=== PATIENT | male | born 1975 | race Asian ===

== ENCOUNTER 2017-03-07 09:52 | Outpatient (CLI) | payer BC ==
--- NOTE | 2017-03-07 11:25 | ULT ---
HEPATIC ULTRASOUND WITH DUPLEX EVALUATION: Indication: History of hepatitis B. Comparison: Recent study dated 04-20-16. Technique: Grayscale, color doppler, vascular duplex and spectral analysis performed of the liver and hepatic vasculature. FINDINGS: Liver measures 14.2 cm. No focal hepatic lesion is evident. Small hyperechoic lesion seen within the anterior right hepatic lobe on comparison examination was not demonstrated. Visualized aspects of the abdominal aorta appear within normal limits. Small amount of sludge is seen within the gallbladder. No sonographic Morrissey's sign is reported. Comm on bile duct measures 3.6 mm. Visualized right kidney appeared within normal limits. The spleen measured 10.4 cm in length. Appropriate hepatopedal flow is seen within the hepatic vasculature. Visualized aspects of the pancreas are unremarkable. IMPRESSION: 1. Small hyperechoic lesion seen within the anterior aspect of the right hepatic lobe previously freddie uring 8 mm is not demonstrated on the current exam. 2. No new focal hepatic lesions are evident. 3. Small amount of gallbladder sludge. 4. Appropriate hepatopedal flow is seen within the hepatic vasculature. POS: [facility]
== END 2017-03-07 09:53 | disposition home or self-care (01) ==
LOC: ULT 09:52
PROVIDERS: ATTEND Internal Medicine Gastroenterology
DX: B18.1 Chronic viral hepatitis B without delta-agent (principal); R93.3 Abnormal findings on diagnostic imaging of other parts of digestive tract; K76.89 Other specified diseases of liver; K83.9 Disease of biliary tract, unspecified
CPT/HCPCS: 76705

== ENCOUNTER 2017-11-21 11:57 | Outpatient (CLI) | payer BC ==
--- NOTE | 2017-11-21 12:47 | ULT ---
ULTRASOUND HEPATIC DOPPLER: HISTORY: Chronic hepatitis B. COMPARISON: Numerous prior examinations, the most recent 03/07/17. TECHNIQUE: Real-time, albrecht scale, color Doppler, and spectral analysis of the liver was performed. FINDINGS: The visualized portions of the pancreas are unremarkable. The liver measures 14 cm in length. The p ortal vein is patent with antegrade flow. Hepatic veins have normal directional flow and normal phas icity. Gallbladder wall thickness is normal. No pericholecystic fluid. The common bile duct is normal. The spleen measures 10 cm in length. The splenic artery and vein are patent. IMPRESSION: 1. No hepatic mass. 2. Normal directional flow. POS: [facility]
== END 2017-11-21 11:58 | disposition home or self-care (01) ==
LOC: SCSULT 11:57
PROVIDERS: ATTEND Internal Medicine Gastroenterology
DX: B18.1 Chronic viral hepatitis B without delta-agent (principal); R93.3 Abnormal findings on diagnostic imaging of other parts of digestive tract; R19.6 Halitosis
CPT/HCPCS: 76705

== ENCOUNTER 2018-07-18 09:52 | Outpatient (CLI) | payer BC ==
--- NOTE | 2018-07-18 10:52 | ULT ---
US Hepatic Doppler History: [Chronic hepatitis B] Comparison: Hepatic Doppler November 2017 Findings: Real-time grayscale, color, and spectral analysis of the liver was performed. Visualized po rtion of the pancreas aorta and IVC are unremarkable. Normal directional flow of the hepatic veins. Portal veins are patent with normal directional flow. There are 2 separate hyperechoic masses in the right lobe of the liver measuring 1.2 x 1 x 0.9 cm and 1.3 x 1.3 x 0.9 cm. Portal vein is patent with antegrade flow. Spleen measures 9.4 cm in length. Impression: Two separate hyperechoic masses within the liver which when looking back at all prior jyoti ging is similar, likely hemangiomas. Given there is no cross-sectional imaging, follow-up liver protocol MRI in 6 months is recommended.
== END 2018-07-18 09:53 | disposition home or self-care (01) ==
LOC: BICULT 09:52
PROVIDERS: ATTEND Internal Medicine Gastroenterology
DX: B18.1 Chronic viral hepatitis B without delta-agent (principal); K76.89 Other specified diseases of liver
CPT/HCPCS: 76705

== ENCOUNTER 2019-01-16 09:27 | Outpatient (CLI) | payer BC ==
--- NOTE | 2019-01-16 12:57 | MRI ---
EXAM: MRI of the abdomen without and with contrast COMPARISON: Pelvic ultrasound 07/18/2018 HISTORY: Abnormality seen on prior ultrasound of the abdomen TECHNIQUE: Multiplanar multi sequence MR images were taken of the abdomen without and with IV contras t. [An MRCP was performed.] FINDINGS: Liver: There are 2 well-circumscribed masses in the right lower liver measuring 10 and 13 mm in size. These demonstrate high T2 signal and atrophy administration of contrast demonstrate peripheral puddling and gradual fill-in consistent with hemangiomas. These correspond to the abnormalities seen on ultrasound. There are also nonenhancing foci of high T2 signal in the liver measuring up to 7 mm in size consistent with simple cysts. Gallbladder: No filling defects or gallbladder wall thickening. Common bile duct: Normal caliber without filling defects Adrenal glands: Unremarkable. Kidneys: No hydronephrosis or focal renal lesions. No abnormal areas of enhancement. Spleen: Unremarkable. Pancreas: Unremarkable. No abnormal enhancement. Retroperitoneum: No enlarged lymph nodes Bones: No marrow signal abnormality. IMPRESSION: 1. 2 hepatic hemangiomas 2. Hepatic cysts
== END 2019-01-16 09:28 | disposition home or self-care (01) ==
LOC: SCSMRI 09:27
PROVIDERS: ATTEND Internal Medicine Gastroenterology
DX: B18.1 Chronic viral hepatitis B without delta-agent (principal); K76.89 Other specified diseases of liver; D18.09 Hemangioma of other sites
CPT/HCPCS: 74183

== ENCOUNTER 2019-08-19 08:08 | Outpatient (CLI) | payer BC ==
--- NOTE | 2019-08-19 08:53 | ULT ---
Hepatic sonogram with duplex evaluation HISTORY: Chronic hepatitis B. FINDINGS: Gallbladder has a normal appearance without stone evident. Common duct is 0.3 cm. Small hyperechoic hemangiomas within the right liver lobe are stable. No intrahepatic biliary dilatat ion. No mass. No free fluid. Spleen measures up to 10.2 cm without focal abnormality. Good color and spectral Doppler flow within the hepatic and splenic arteries. Portal venous flow is t owards the liver. Hepatic venous flow is towards the IVC. IMPRESSION : No sonographic findings of portal venous hypertension. No evidence of biliary obstruction or acute abnormalities. Hepatic hemangiomas are stable.
== END 2019-08-19 08:09 | disposition home or self-care (01) ==
LOC: SCSULT 08:08
PROVIDERS: ATTEND Internal Medicine Gastroenterology
DX: B18.1 Chronic viral hepatitis B without delta-agent (principal); K76.9 Liver disease, unspecified; D18.03 Hemangioma of intra-abdominal structures
CPT/HCPCS: 76705

== ENCOUNTER 2021-09-22 07:57 | Outpatient (CLI) | payer BC | END 2021-09-22 07:58 | disposition home or self-care (01) | LOC: ULT 07:57 | PROVIDERS: ATTEND Internal Medicine Gastroenterology | DX: K76.9 Liver disease, unspecified (principal) | CPT/HCPCS: 76705 ==